=== PATIENT | female | born 1975 | race Caucasian/White ===

== ENCOUNTER → 2017-11-27 21:58 | Outpatient (CLI) | payer BC | END | disposition home or self-care (01) | LOC: D.MAMMO 13:30 | DX: Z12.31 Encounter for screening mammogram for malignant neoplasm of breast (principal) ==

== ENCOUNTER 2019-02-09 08:00 | Outpatient (CLI) | payer OTHER | END 2019-02-09 09:00 | disposition home or self-care (01) | LOC: D.MAMMO 08:00 | PROVIDERS: ATTEND Family Medicine | DX: Z12.31 Encounter for screening mammogram for malignant neoplasm of breast (principal) ==

== ENCOUNTER 2020-03-06 19:00 | Outpatient (CLI) | payer OTHER | END 2020-03-06 23:59 | disposition home or self-care (01) | LOC: D.MAMMO 19:00 | PROVIDERS: ATTEND Nurse Practitioner Family | DX: Z12.31 Encounter for screening mammogram for malignant neoplasm of breast (principal) ==

== ENCOUNTER 2021-03-07 11:45 | Outpatient (CLI) | payer OTHER | END 2021-03-07 23:59 | disposition home or self-care (01) | LOC: D.MAMMO 11:45 | PROVIDERS: ATTEND Nurse Practitioner Family | DX: Z12.31 Encounter for screening mammogram for malignant neoplasm of breast (principal) ==